=== PATIENT | female | born 1935 | race Asian ===

== ENCOUNTER 2017-05-02 15:33 | Outpatient (CLI) | payer MEDICARE ==
--- NOTE | 2017-05-02 16:08 | XRay Report ---
CHEST 2 VIEWS INDICATION: Cough. COMPARISON: None similar at this institution. FINDINGS: PA and lateral chest radiographs demonstrate normal cardiomediastinal silhouette. Clear lungs. 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 Possible right breast surgical clips. IVC filter partially imaged. Demineralized bones with mid to lower thoracic spine osteophytes. CONCLUSION: No acute chest process with few other findings, as above. Thank you for the opportunity to participate in this patient's care.
== END 2017-05-02 15:34 | disposition home or self-care (01) ==
LOC: SPVIMAG 15:33
PROVIDERS: ATTEND Internal Medicine
DX: R05 Cough (principal); M25.78 Osteophyte, vertebrae
CPT/HCPCS: 71020